=== PATIENT | male | born 1975 | race African-American/Black ===

== ENCOUNTER 2019-04-12 18:48 | Emergency (ER) | payer MEDICAID ==
[~2019-04-12] VITALS: Ht 177.8 cm; Wt 100.0 kg
[~2019-04-12 18:48] MED LIST: ALBU18HF2 IH; HYDR-519 PO
[2019-04-12] MEDS ORDERED: ONDANSETRON HCL 4MG/2ML INJ IV STA (18:56)
[2019-04-12] MEDS ORDERED: HYDRALAZINE 20MG/ML VIAL IV ONE (19:00)
[2019-04-12 19:39] LABS: BASOPHILS % 0.8 % (0.0-2.0); CLARITY URINE CLEAR (CLEAR); COLOR URINE YELLOW (YELLOW); EOSINOPHILS % 5.7 % (0.0-5.0); HEMATOCRIT. 42.6 % (42.0-52.0); HEMOGLOBIN. 13.7 g/dL (14.0-18.0); KETONES URINE NEGATIVE (NEGATIVE); LEUKOCYTE ESTERASE URINE NEGATIVE (NEGATIVE); LYMPHOCYTES % 29.1 % (20.0-50.0); MEAN CORPUSCULAR HEMOGLOBIN 26.7 pg (28.0-32.0); MEAN CORPUSCULAR VOLUME 83.2 fL (80.0-94.0); MEAN PLATELET VOLUME 10.4 fl (7.4-10.4); MONOCYTES % 7.6 % (2.0-8.0); NEUTROPHILS % 56.8 % (40.0-76.0); NITRITE URINE NEGATIVE (NEGATIVE); OCCULT BLOOD URINE NEGATIVE (NEGATIVE); PLATELET 276 x1000/uL (130-400); PROTEIN URINE TRACE (NEGATIVE); RED BLOOD CELL COUNT 5.12 mill/uL (4.7-6.1); RED CELL DISTRIBUTION WIDTH 15.5 % (11.6-14.6); SPECIFIC GRAVITY URINE 1.014 (1.005-1.030); UROBILINOGEN URINE 0.2 E.U./dL (0.2-1.0)
[2019-04-12 19:41] VITALS: BP 188/66
[2019-04-12 19:44] LABS: CHLORIDE 105 mEq/L (98-107); PROTHROMBIN TIME 9.8 sec (9.6-11.0)
[2019-04-12 19:48] LABS: ETHANOL BLOOD < 10 mg/dL
[2019-04-12 19:53] LABS: *AMPHETAMINES SCREEN URINE NEGATIVE (NEGATIVE); *BARBITURATES SCREEN URINE NEGATIVE (NEGATIVE); *BENZODIAZEPINES SCREEN URINE NEGATIVE (NEGATIVE); *COCAINE SCREEN URINE NEGATIVE (NEGATIVE); METHADONE URINE SCREEN NEGATIVE (NEGATIVE)
[2019-04-12 19:54] LABS: CANNABINOID URINE SCREEN NEGATIVE (NEGATIVE); OPIATES URINE SCREEN NEGATIVE (NEGATIVE); PHENCYCLIDINE URINE SCREEN PRESUMTIVE POSITIVE (NEGATIVE)
== END 2019-04-12 19:41 | disposition left against medical advice (07) ==
LOC: ER 18:48
DX: I10 Essential (primary) hypertension (principal); R41.82 Altered mental status, unspecified; E11.9 Type 2 diabetes mellitus without complications; E78.00 Pure hypercholesterolemia, unspecified
CPT/HCPCS: 36415; 80053; 80305; 80307; 80320; 80329; 81003; 83690; 85025; 85610; 96374; 96375; 99283; J0360; J2405; G0480